=== PATIENT | female | born 1950 | race Caucasian/White ===

== ENCOUNTER 2021-08-31 09:58 | Emergency (ER) | payer MEDICARE ==
[~2021-08-31] VITALS: Ht 152.4 cm; Wt 61.8 kg
[2021-08-31] MEDS ORDERED: DIPH,PERTUSS(ACELL),TET VAC/PF 0.5 ML SYRINGE. VAX IM ONE (10:45)
[2021-08-31] MEDS ORDERED: LIDOCAINE/EPI/TETRACAINE TOPICAL GEL 3 ML. TP ONE (10:45)
--- NOTE | 2021-08-31 10:51 | PHYS DOC ---
Past Medical History Past Surgical History: Other Additional Past Surgical Histo: bladder sling (CASTILLO JIN) General Adult EDM: Chief Complaint: LACERATION/AVULSION HPI: HPI: Patient is a 71 year old female who presents with skin tear for the past 3 days. Patient states that on Thursday, she cut her hand on a rounded door that caused her skin to tear. Since that time, she has applied Neosporin as well as another antibiotic ointment and kept it covered with gauze. She denies fever, chills, pain in her hand, redness, discharge, weakness, stiffness. (CASTILLO JIN) Review of Systems: Review of Systems: Constitutional: See HPI Respiratory: Denies cough or shortness of breath. Cardiovascular: Denies chest pain or edema. Musculoskeletal: See HPI Integument: See HPI (CASTILLO JIN) Heart Score: C/O Chest Pain: No (CASTILLO JIN) Current Medications: Current Medications Medications (Trade) Dose Ordered Sig/Sebastian Start Time Stop Time Status Last Admin Dose Admin Tetracaine/ Epinephrine/ Lidocaine (Let (Kiwf-Aobkyfc-Zjdei) Gel) 3 ml 1X ONCE 08/31/21 10:45 08/31/21 10:46 (CASTILLO JIN) Allergies: Allergies: Allergies Coded Allergies Type Severity Reaction Last Updated Verified doxycycline Adverse Reaction Intermediate nausea and vomiting 08/31/21 Yes (CASTILLO JIN) Physical Exam: PE: Constitutional: Well developed, well nourished, no acute distress, non-toxic appearance. Cardiovascular: Heart rate regular rhythm, no murmur. Lungs & Thorax: Bilateral breath sounds clear to auscultation. Skin: 2.5 x 2 cm skin tear noted on the dorsolateral aspect of the right hand with a skin flap showing decreased perfusion that is no longer approximated well; no erythema, swelling or discharge appreciated. Skin otherwise warm, dry, no erythema, no rash. Back: No step-offs, no tenderness. Extremities: No tenderness, no cyanosis, no clubbing, ROM intact, no edema. Neurologic: Alert and oriented x4, normal motor function, normal sensory function, no focal deficits noted. (CASTILLO JIN) Current Patient Data: Vital Signs: Vital Signs Date Time Temp Pulse Resp B/P (MAP) Pulse Ox O2 Delivery O2 Flow Rate FiO2 08/31/21 11:40 100 18 146/67 (93) 95 Room Air 08/31/21 10:20 98.1 100 18 169/87 (114) 95 Room Air 98.1 (CASTILLO JIN) Course & Med Decision Making: Course & Med Decision Making Pertinent Labs and Imaging studies reviewed. (See chart for details) Patient sustained skin tear few days ago, so it will not be repaired secondary to risk of infection. Patient is unaware of the date of her last tetanus vaccination, so will be updated in the department today. Let gel will be applied to the wound prior to debridement. Wound was minimally debrided to remove edges of skin flap. Patient tolerated procedure well. Patient will be provided with topical antibiotic ointment and wound care instruction. Patient understands and is agreeable to discharge plan. (CASTILLO JIN) Dragon Disclaimer: Dragon Disclaimer: This electronic medical record was generated, in whole or in part, using a voice recognition dictation system. (CASTILLO JIN) Departure Departure Impression: Primary Impression: Skin tear of right hand without complication Qualified Codes: S61.411A - Laceration without foreign body of right hand, initial encounter Disposition: HOME / SELF CARE / HOMELESS Condition: STABLE Referrals: VIVIANA JAVIER MD (PCP) Patient Instructions: Skin Tear Care, [id number] Attending Signature Attending Signature I have reviewed the PA/EFFICIENCY MANAGER's note and plan of care. I was available for consultation as needed during the patient's visit in the emergency department. I agree with the clinical impression, plan, and disposition. (SUMIT TAYLOR DO) CASTILLO JIN Aug 31, 2021 10:51 SUMIT TAYLOR DO Sep 01, 2021 06:55
[2021-08-31 11:40] VITALS: BP 146/67
== END 2021-08-31 11:40 | disposition home or self-care (01) ==
LOC: ER 09:58
DX: S61.411A Laceration without foreign body of right hand, initial encounter (principal); Z88.1 Allergy status to other antibiotic agents; Y28.8XXA Contact with other sharp object, undetermined intent, initial encounter; Y93.89 Activity, other specified; Y92.89 Other specified places as the place of occurrence of the external cause; Y99.8 Other external cause status
CPT/HCPCS: 90471; 90715; 99283-25